=== PATIENT | male | born 1930 | race African-American/Black ===

== ENCOUNTER 2017-03-21 02:10 | Inpatient (IN) | payer MEDICARE ==
--- NOTE | ~2017-03-21 | IDS ---
Interim Discharge Summary [facility] [address] [place]. [address] NAME: JIA MCALLISTER JR : 34 STATUS : ADM IN PAT#: [id number] AGE: 86 ADM/REG DATE : 03/21/17 MR#: [id number] REPORT SERV DATE: 03/24/17 DICTATED BY: Donis ESPOSITO DATE: 03/24/17 REPORT STATUS : Draft TRANSCRIBED BY: MODL DATE: 03/24/17 ADMISSION DATE: 03/21/2017 DISCHARGE DATE: DATE OF INTERIM SUMMARY: 03/24/2017. DIAGNOSES AT TIME OF INTERIM SUMMARY: Metabolic encephalopathy, resolved; profound hypoglycemia, improving; acute kidney injury/chronic kidney disease stage 3; hypokalemia, resolved; atrial fibrillation; moderate protein-calorie malnutrition; history of prostate cancer with undetectable PSA. CONSULTS: None. PROCEDURES: None. BRIEF SUMMARY: 86-year-old male patient was admitted confused and profoundly hypoglycemic to the intermediate care unit. Initial stabilization required multiple doses of glucagon, D50, and ultimately continue with D10 for stabilization. The patient's family denies that he had accessed the diabetic medication and he has no history of diabetes. His evaluation has included a C-peptide level, insulin levels, and pro-insulin levels; all these values have now back and suggesting that the source of his hyperglycemia could be endogenous. The patient has had a CT scan of the pancreas with and without contrast that showed no abnormality. I have reviewed the case with Dr. Harish Pastor, household appliance installer. His recommendations are to repeat his pro-insulin level, C-peptide level, TSH, and cortisol, fasting tomorrow morning, and off IV fluids. If these values come back consistent with an endogenous source, he would recommend PET scanning. Of note, the patient's drug screen for diabetic medications remains pending. If this test does suggest that the patient has had inadvertent oral therapy, likely the PET scan would be necessary. We will keep the patient here at immediate care for one more day while we hep-lock his IV fluids and repeat his fasting labs, just in case he redevelop hypoglycemia. The patient's hospital care will be provided by another member of the team starting 03/25/2017. LABORATORY DATA: Significant labs at the time of this dictation, show a sodium of 135, potassium of 4.5, BUN of 40, creatinine 1.89. White count is 12.6 with a hemoglobin of 10.0. [facility]/MODL Donis Esposito M.D. / [id number] CC: Interim Discharge Summary [address] [address] NAME: MCALLISTERJIA Todd ADÁN CONN : 32 STATUS : ADM IN PAT#: [id number] AGE: 86 ADM/REG DATE : 03/21/17 MR#: [id number] REPORT SERV DATE: 03/24/17 DICTATED BY: Donis ESPOSITO DATE: 03/24/17 REPORT STATUS : Draft TRANSCRIBED BY: CITLALLI DATE: 03/24/17 Triny Tolentino M.D.
--- NOTE | ~2017-03-21 | EGD ---
EGD REPORT [facility] [address] [address] NAME: JIA MCALLISTER : 32 STATUS : ADM IN PAT#: [id number] AGE: 86 ADM/REG DATE : 03/21/17 MR#: [id number] REPORT SERV DATE: 04/03/17 DICTATED BY: ABEL RAMOS DATE: 04/03/17 REPORT STATUS : Draft TRANSCRIBED BY: [facility] DATE: 04/03/17 [facility] Patient Name: Jia Mcallister Date of : 1930 Attending MD: ABEL RAMOS MD Procedure Date No Time: 04/03/2017 Procedure: Upper EUS Indications: Suspected mass in pancreas on CT scan Referring MD: JOHN MELENDEZ Medicines: Monitored Anesthesia Care Complications: No immediate complications. Estimated blood loss: Minimal. Procedure: Pre-Anesthesia Assessment: - ASA Grade Assessment: III - A patient with severe systemic disease. After obtaining informed consent, the endoscope was passed under direct vision. Throughout the procedure, the patient's blood pressure, pulse, and oxygen saturations were monitored continuously. The Endoscope was introduced through the mouth, and advanced to the second part of duodenum. The upper EUS was accomplished without difficulty. The patient tolerated the procedure well. Findings: Endosonographic Finding : There was no sign of significant endosonographic abnormality in the common bile duct. No stones, no biliary sludge and ducts of normal caliber were identified. There was lobularity seen in the head of the pancreas consistent with mild chronic pancreatitis, but there was no suggestion of any mass or lymphadenopathy despite a careful examination. The area in question was examined a second time by Dr. Carrington, but again no mass or suspicious lesions were seen. There was no sign of significant endosonographic abnormality in the genu of the pancreas, in the pancreatic body and in the pancreatic tail. No pathologic lymphadenopathy, no masses, no cysts, the pancreatic duct was thin in caliber. Endosonographic imaging of the visualized portion of the liver showed no abnormalities. No lymphadenopathy seen. A limited doppler examination was performed and revealed no significant vascular abnormalities. Impression: - Mild lobularity was noted in the pancreatic head but EGD REPORT [address] [place]. [address] NAME: JIA MCALLISTER ADÁN CONN : 32 STATUS : ADM IN [facility]#: [id number] AGE: 86 ADM/REG DATE : 03/21/17 MR#: [id number] REPORT SERV DATE: 04/03/17 DICTATED BY: ABEL RAMOS DATE: 04/03/17 REPORT STATUS : Draft TRANSCRIBED BY: [facility] DATE: 04/03/17 no mass or lymph nodes were seen despite careful examination. - There was no sign of significant pathology in the genu of the pancreas, in the pancreatic body and in the pancreatic tail. - Otherwise normal examination with EUS Recommendation: - [facility]. - Return to previous diet today. Procedure Code(s): --- Professional --- 33064, Esophagogastroduodenoscopy, flexible, transoral; with endoscopic ultrasound examination, including the esophagus, stomach, and either the duodenum or a surgically altered stomach where the jejunum is examined distal to the anastomosis Diagnosis Code(s): --- Professional --- K86.9, Disease of pancreas, unspecified R93.3, Abnormal findings on diagnostic imaging of other parts of digestive tract CPT copyright 2013 [employer]. All rights reserved. The codes documented in this report are preliminary and upon adoption services manager review may be revised to meet current compliance requirements. Abel Ramos MD ABEL RAMOS MD 04/03/2017 8:22 AM This report has been signed electronically. Number of Addenda: 0 Note Initiated On: 04/03/2017 7:00 AM Scope Withdrawal Time 0 hours 0 minutes 0 seconds [address] [address]
--- NOTE | ~2017-03-21 | HP ---
History And Physical [place] [address] [facility] [place]. [address] NAME: JIA MCALLISTER JR : 32 STATUS : ADM IN PAT#: [id number] AGE: 86 ADM/REG DATE : 03/21/17 MR#: [id number] REPORT SERV DATE: 03/21/17 DICTATED BY: SCARLET LOPEZ DATE: 03/21/17 REPORT STATUS : Draft TRANSCRIBED BY: MODBravo DATE: 03/21/17 DATE OF ADMISSION: 03/21/2017 CHIEF COMPLAINT: An 86-year-old male, presenting with severe symptomatic hypoglycemia despite being nondiabetic. HISTORY OF PRESENT ILLNESS: The patient's history was obtained through careful interview with the patient, his common-law of 20 years, daughter, and granddaughter, coupled with review of [facility] medical records. The patient has been in usual state of health when suddenly on the night of admission, his had found him lying in bed, completely unresponsive, and "soaking wet" with diaphoresis. The patient's is a diabetic and called an ambulance service. They came and evaluated him and found that he had a blood sugar of 32. He was shaking unresponsive until the patient was given treatment for low blood sugar when he was revived again and the symptoms subsided. He was quite confused for about an hour afterwards with only gradual improvement in his symptoms of confusion to where now, he is oriented and back to baseline during my evaluation. He has noticed some increasing new onset lower extremity edema over the last month or so. He has chronic shortness of breath unchanged from baseline. No coughing. No fevers or chills. No nausea or vomiting. No change of bowel or bladder habit. The patient has no pain complaints at all. No headache. No back pain. No chest pain. No abdominal pain. Although the patient's is a diabetic and takes medicines for this. She adamantly proclaims that it is "impossible" for the patient to have accidentally taken some of her medications, and the patient himself is quite organized with his medication regimen as well and states there was no way that he can imagine taking these medications. REVIEW OF SYSTEMS: Otherwise, a 14-point review of systems was obtained and was negative. PAST MEDICAL HISTORY: 1. Prostate cancer in 2010. 2. Gout. 3. Hypertension. 4. Chronic kidney disease, stage III. Baseline creatinine of 1.3 to 1.5. 5. Cellulitis. 6. Some kind of cardiac aneurysm seen at [facility], evaluated by Dr. Jim Hu. PAST SURGICAL HISTORY: Cholecystectomy. History And Physical [address] [place]. [address] NAME: JIA MCALLISTER JR : 32 STATUS : ADM IN PAT#: [id number] AGE: 86 ADM/REG DATE : 03/21/17 MR#: [id number] REPORT SERV DATE: 03/21/17 DICTATED BY: SCARLET LOPEZ DATE: 03/21/17 REPORT STATUS : Draft TRANSCRIBED BY: CITLALLI DATE: 03/21/17 ALLERGIES: NO KNOWN DRUG ALLERGIES. SOCIAL HISTORY: Quit smoking in 1990. Ambulates with a walker. He is completely independent with activities of daily living. He has seven children. He has been living with his common-law for 20 years. FAMILY HISTORY: Cancer and diabetes. CURRENT MEDICATIONS: Allopurinol 300 mg p.o. daily, Casodex 50 mg p.o. daily, Lasix 40 mg p.o. daily, Neurontin 300 mg p.o. t.i.d., Lopressor 50 mg p.o. b.i.d. PHYSICAL EXAMINATION: VITAL SIGNS: Temperature 97.0, pulse 67, blood pressure 102/61, respiratory rate 18, and O2 saturation 99% on room air. GENERAL: A pleasant, cooperative, asymptomatic -Swazi male, no evidence of distress. HEENT: Pupils equal, round, and reactive to light. No conjunctival pallor. No scleral icterus. Nares are patent. Oropharynx was clear of obstruction. Moist mucous membranes. NECK: Trachea midline. No thyromegaly. LYMPH: No cervical lymphadenopathy. No supraclavicular lymphadenopathy. RESPIRATORY: Clear to auscultation at bases. No wheezes, rales, or rhonchi. Normal respiratory effort. CARDIOVASCULAR: Regular rate and rhythm. No murmurs, rubs, or gallops. No extremity edema is appreciated. ABDOMEN: Soft, nontender, nondistended. Normal bowel sounds auscultated throughout. No hepatosplenomegaly. DERMATOLOGICAL: Warm and dry extremities. No pallor. No cyanosis. PSYCHIATRIC: Normal affect. Good mood. Alert and oriented x3. LABORATORY DATA: White blood cell count 13.2, hemoglobin 10, hematocrit 32, platelets 152. Sodium 145, potassium 3.0, chloride 105, bicarb 26, BUN 33, creatinine 1.7, glucose 41, albumin 3.0, AST 341, ALT 78, alkaline phosphatase 188. STUDIES: Chest x-ray by my own evaluation shows cardiomegaly. No acute abnormality. ASSESSMENT AND PLAN: 1. Severe hypoglycemia and a nondiabetic. 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 While I am evaluating the patient, an Accu-Chek shows a blood sugar of 52, this despite the patient having just received an amp of D50 and having eaten some crackers, but I have decided to admit the patient to the IMCU to work the patient up for hypoglycemic evaluation and even to rule out insulinoma to further clarify this is an accidental medication side-effect from accidentally taking his 's diabetes medication. We will watch in the IMCU. We will check Accu-Chek every [address] the patient in a fasting state at the blood sugar of 52 is asymptomatic, but I have begun evaluation by checking sulfonylurea and meglitinide History And Physical [address] [address] NAME: JIA MCALLISTER JR : 32 STATUS : ADM IN [facility]#: [id number] AGE: 86 ADM/REG DATE : 03/21/17 MR#: [id number] REPORT SERV DATE: 03/21/17 DICTATED BY: SCARLET LOPEZ DATE: 03/21/17 REPORT STATUS : Draft TRANSCRIBED BY: MODBravo DATE: 03/21/17 screen as well as checking insulin, C-peptide, beta-hydroxybutyrate, and proinsulin. When the blood sugar drops into the 40s, we will repeat the studies and if the patient has any symptomatic hypoglycemia, if the patient drops below blood sugar of 40, and/or becomes symptomatic, we will begin to treat with glucose but until then we will continue to check insulin C-peptide, beta-hydroxybutyrate, and proinsulin evaluating the patient's response to hypoglycemia. 2. Hypokalemia. Replace potassium. Check magnesium. Check telemetry. 3. Acute kidney injury. Place on IV fluids. 4. Leukocytosis. Check urinalysis. Monitor for fevers. Question of possible stress response. Check ESR and CRP. [facility]/MODL Scarlet Lopez M.D. / [id number] CC: Triny Tolentino M.D.
--- NOTE | ~2017-03-21 | DS ---
Discharge Summary [facility] [address] [place]. [address] NAME: JIA MCALLISTER JR : 32 STATUS : DIS IN PAT#: [id number] AGE: 86 ADM/REG DATE : 03/21/17 MR#: [id number] REPORT SERV DATE: 04/04/17 DICTATED BY: ROBERT GUAJARDO DATE: 04/03/17 REPORT STATUS : Draft TRANSCRIBED BY: MODL DATE: 04/03/17 ADMISSION DATE: 03/21/2017 DISCHARGE DATE: 04/03/2017 The patient is an 86-year-old male with a history of hypertension, CKD stage 3, and prostate cancer in 2010, who was brought to the emergency room with a complaint of severe symptomatic hypoglycemia despite being nondiabetic. For further details, please refer to H and P dictated by Dr. Efe Francisco on 03/21/2017. HOSPITAL COURSE: Please refer to interim discharge summary dictated by Dr. Mayank Garrett on 03/24/2017. I assumed care of the patient on 03/28/2017. At the time of my assumption of care, the patient was hemodynamically stable and his severe symptomatic hypoglycemia was being worked up. Urine sample had been obtained for drug level as possible etiology of his hypoglycemia, and also C-peptide and proinsulin were also ordered. Given that these were sent out, labs results came back four to five days later. Upon my assumption of care, I reviewed the patient's urine drug screen. I also reviewed his C-peptide and proinsulin. His urine was negative for any anti-hyperglycemic medications and his proinsulin and C- peptide were both elevated suggesting an endogenous cause of his hypoglycemia. After consultation with Radiology, dynamic MRI of abdomen and pelvis was ordered. Results came back with a concern of a possible lesion noted on the pancreatic head, likely concerning for an insulinoma. Given this finding, GI was consulted to assist in management. The patient was taken today for endoscopic ultrasound with biopsy. At the time of our procedure, pancreatic head was carefully examined, however, no lesion suggestive of an insulinoma was found and no lesion that needed to be biopsied. Given this finding, no biopsy was taken. The patient was returned to the medical floor for further management. Since my assumption of care, the patient has not had any episodes of hypoglycemia and he has remained hemodynamically stable and currently at his baseline given completion of workup, and the patient will be discharged back to [facility]. Plan has been discussed with the patient and family who voiced understanding and is agreeable with this plan. DISCHARGE PHYSICAL EXAMINATION: VITAL SIGNS: 104/66 with a pulse of 69, respirations of 18, and O2 saturation of 99% on room air. GENERAL: The patient sitting in chair, in no acute distress. Appears stated age. HEENT: Normocephalic and atraumatic. Extraocular motors intact. Moist oral mucosa. Pupils are round and reactive to light and accommodation. NECK: Trachea midline and symmetric. No JVD noted. No lymphadenopathy palpated. No thyromegaly noted. CHEST: Nontender to palpation. No scars noted. CARDIOVASCULAR: Regular rate and rhythm. S1, S2. No murmurs, rubs, or gallops. LUNGS: Clear to auscultation bilaterally. No wheezes, rales, or rhonchi. ABDOMEN: Positive bowel sounds. Nontender. Nondistended. Mildly obese. EXTREMITIES: No cyanosis, no clubbing, no edema. NEURO: The patient is alert and oriented as he is currently at his baseline. DISCHARGE DIAGNOSES: 1. Insulinoma. Discharge Summary [address] [address] NAME: JIA MCALLISTER JR : 32 STATUS : DIS IN PAT#: [id number] AGE: 86 ADM/REG DATE : 03/21/17 MR#: [id number] REPORT SERV DATE: 04/04/17 DICTATED BY: ROBERT GUAJARDO DATE: 04/03/17 REPORT STATUS : Draft TRANSCRIBED BY: MODL DATE: 04/03/17 2. Severe hypoglycemia. 3. History of cor pulmonale. 4. History of prostate cancer. 5. Stage 3 chronic kidney disease. DISCHARGE MEDICATIONS: 1. Allopurinol 300 mg p.o. daily. 2. Casodex 50 mg p.o. daily. 3. Furosemide 40 mg p.o. daily. 4. Gabapentin 300 mg p.o. q.8 hours. 5. Lopressor 50 mg p.o. twice a day. PROCEDURE: 1. Upper endoscopic ultrasound. Impression: Please refer to EGD report dictated by GI on 04/03/2017. 2. CARINE from 03/22/2017. 3. Abdominal CT with and without contrast 03/22/2017. 4. Venous Doppler of lower extremities bilaterally on 03/21/2017. 5. Dynamic MRI of abdomen with and without contrast on 03/29/2017. CONSULTANTS: Dr. Aguila of GI. DISPOSITION: The patient will be discharged to [facility]. ACTIVITY: As tolerated. DIET: Regular diet. Greater than 30 minutes was spent coordinating care, discussion of case with nursing staff, dictation of note, medication reconciliation, and providing counseling. MALA/CITLALLI Robert Guajardo MD / [id number] CC: MD Tonny Camp M.D.
--- NOTE | ~2017-03-21 | CN ---
Consultation Report [facility] [address]. [address] NAME: JIA MCALLISTER JR : 34 STATUS : ADM IN [facility]#: [id number] AGE: 86 ADM/REG DATE : 03/21/17 MR#: [id number] REPORT SERV DATE: 03/30/17 DICTATED BY: JOY TURNER DATE: 03/30/17 REPORT STATUS : Draft TRANSCRIBED BY: MODL DATE: 03/30/17 GI CONSULTATION DATE OF CONSULTATION: 03/30/2017 REASON FOR CONSULTATION: Abnormal CT scan and pancreatic mass. HISTORY OF PRESENT ILLNESS: Mr. Mcallister is an 86-year-old black male with a history of prostate cancer, gout, hypertension and chronic kidney disease stage 3. He initially presented to [facility] with symptomatic hypoglycemia and altered mental status. He was admitted on 03/21/2017, he had an MRI recently performed, which showed a 2 x 0.7 cm mass in the superior aspect of the pancreatic head. The remainder of the pancreas appeared normal. No biliary dilatation. Normal-appearing liver and spleen. GI has been consulted for possible insulinoma. Glucose today was 88. PAST MEDICAL HISTORY: Prostate cancer, hypertension, chronic kidney disease stage 3, gout and cardiac aneurysm. PAST SURGICAL HISTORY: Cholecystectomy. SOCIAL HISTORY: Former tobacco use. Denies any alcohol or drug use. FAMILY HISTORY: Cancer and diabetes. MEDICATIONS: Reviewed. ALLERGIES: REVIEWED. PHYSICAL EXAMINATION: VITAL SIGNS: The patient is afebrile. His vital signs are stable. GENERAL: The patient is awake, alert, and oriented x3. Very hard of hearing. HEENT: Atraumatic, normocephalic. Anicteric. Mucous membranes moist. CARDIAC: S1, S2. CHEST: Clear. ABDOMEN: Soft, obese, nontender and nondistended. Bowel sounds normoactive. LABORATORY DATA: WBC 11.2, hemoglobin 10.2, hematocrit 30.6, platelets 209, MCV 78.2. INR is 1.3. Sodium 139, potassium 4.1, chloride 100, bicarb 36, BUN 34, creatinine 1.61, glucose 88. Liver enzymes show bilirubin 0.8, AST 50, ALT 36, alkaline phosphatase 219. No lipase recently performed. IMAGING: As dictated above. IMPRESSION AND PLAN: Pancreatic mass, which is adjacent to small bowel. We will go ahead Consultation Report [facility] [address] [place]. [address] NAME: JIA MCALLISTER JR : 32 STATUS : ADM IN PAT#: [id number] AGE: 86 ADM/REG DATE : 03/21/17 MR#: [id number] REPORT SERV DATE: 03/30/17 DICTATED BY: JOY TURNER DATE: 03/30/17 REPORT STATUS : Draft TRANSCRIBED BY: MODL DATE: 03/30/[address] Carrington' service for possible endoscopic ultrasound for further evaluation. I discussed this with the nurse practitioner as well as the patient and his family. Questions and concerns were addressed. We will continue to follow with you. I have taken the liberty of adding a lipase and CA 19-9 to next blood draw. ELLEN/CITLALLI Joy Turner MD / [id number] CC: MD Tonny Camp M.D.
[~2017-03-21 02:10] MED LIST: CAT1 PO; L40 PO; MICRO-K10 MEQ PO; Z100 PO; ZIAC5 PO
[2017-03-21 03:20] LABS: BASOPHILS 0.2 %; BASOPHILS ABSOLUTE 0.02 10/3/uL (0.0-0.16); EOSINOPHILS 0.2 %; EOSINOPHILS ABSOLUTE 0.02 10/3/uL (0.0-0.53); HEMATOCRIT 32.3 % (40.0-51.0); HEMOGLOBIN 10.7 g/dL (13.6-17.8); IMMATURE GRANULOCYTES 0.3 %; IMMATURE GRANULOCYTES ABSOLUTE 0.04 10/3/uL (0.0-0.11); LYMPHOCYTES 8.2 %; LYMPHOCYTES ABSOLUTE 1.09 10/3/uL (0.67-4.30); MEAN CORPUS HGB CONC 33.1 g/dL (32.0-36.0); MEAN CORPUSCULAR HEMOGLOB 26.1 pg (26.0-34.0); MEAN CORPUSCULAR VOLUME 78.8 fL (80-100); MEAN PLATELET VOLUME 11.2 fL (9.2-13.0); MONOCYTES 6.5 %; MONOCYTES ABSOLUTE 0.86 10/3/uL (0.21-1.20); NEUTROPHILS 84.6 %; NEUTROPHILS ABSOLUTE 11.21 10/3/uL (2.02-8.40); RBC DISTRIBUTION WIDTH 15.7 % (12.0-16.0)
[2017-03-21 03:23] LABS: ER CBC TAT 0 Hrs 09 Mins; MANUAL DIFF NO %; PLATELET COUNT 152 10/3/uL (150-400); WHITE BLOOD CELLS 13.2 10/3/uL (4.5-10.5)
[2017-03-21 03:36] LABS: A/G RATIO 0.9 (0.7-1.9); CALCIUM, SERUM 8.1 MG/DL (8.5-10.4); CHLORIDE, SERUM 109 MMOL/L (96-112); CO2 (CARBON DIOXIDE) 26 MMOL/L (24-34); GLOBULIN 3.2 G/DL (2.5-4.1); SGPT(ALT) 28 U/L (5-65); TOTAL BILIRUBIN 0.5 MG/DL (0-1.2); TOTAL PROTEIN 6.2 G/DL (6.0-8.5)
[2017-03-21 03:38] LABS: PLATELET ESTIMATE ADQ (ADEQUATE)
[2017-03-21 03:39] LABS: ALKALINE PHOSPHATASE 188 U/L (45-117); BUN (BLOOD UREA NITROGEN) 33 MG/DL (6-23); CREATININE 1.77 MG/DL (0.70-1.30); GFR AFRICAN AMERICAN 40 ML/MIN (>=60); GFR NON AFRICAN AMERICAN 35 ML/MIN (>=60); GIANT PLATELET FEW; GLUCOSE, SERUM 41 MG/DL (60-99); SODIUM, SERUM 145 MMOL/L (135-148)
[2017-03-21 03:40] LABS: SGOT(AST) 341 U/L (5-40)
[2017-03-21] MEDS ORDERED: NEUR300 PO (05:03)
[2017-03-21] MEDS ORDERED: Z300 PO (05:03)
[2017-03-21] MEDS ORDERED: L40 PO (05:03)
[2017-03-21] MEDS ORDERED: CASODEX 50 MG T50 MG PO (05:03)
[2017-03-21] MEDS ORDERED: LOP50 PO (05:03)
[2017-03-21 09:40] LABS: INTERNATIONAL NORMAL RATI 1.3 UNITS (-); PARTIAL THROMBO TIME 34.5 SEC (22.5-37.2)
[2017-03-21 09:42] LABS: BASOPHILS 0.2 %; BASOPHILS ABSOLUTE 0.02 10/3/uL (0.0-0.16); EOSINOPHILS 0.2 %; EOSINOPHILS ABSOLUTE 0.02 10/3/uL (0.0-0.53); HEMATOCRIT 31.4 % (40.0-51.0); HEMOGLOBIN 10.5 g/dL (13.6-17.8); IMMATURE GRANULOCYTES 0.2 %; IMMATURE GRANULOCYTES ABSOLUTE 0.03 10/3/uL (0.0-0.11); MEAN CORPUS HGB CONC 33.4 g/dL (32.0-36.0); MEAN CORPUSCULAR HEMOGLOB 26.4 pg (26.0-34.0); MEAN CORPUSCULAR VOLUME 78.9 fL (80-100); MONOCYTES 4.7 %; MONOCYTES ABSOLUTE 0.61 10/3/uL (0.21-1.20); NEUTROPHILS 84.7 %; NEUTROPHILS ABSOLUTE 10.97 10/3/uL (2.02-8.40); PLATELET COUNT 146 10/3/uL (150-400); RBC DISTRIBUTION WIDTH 15.8 % (12.0-16.0); RED CELL COUNT 3.98 10/6/uL (4.7-6.1)
[2017-03-21 09:43] LABS: MANUAL DIFF NO %
[2017-03-21 09:52] LABS: PLATELET ESTIMATE SLT DEC (ADEQUATE); RBC MORPHOLOGY NORM (NORMAL)
[2017-03-21 09:56] LABS: A/G RATIO 0.9 (0.7-1.9); ALBUMIN 2.9 G/DL (3.5-5.0); ALKALINE PHOSPHATASE 191 U/L (45-117); BUN (BLOOD UREA NITROGEN) 30 MG/DL (6-23); C-REACTIVE PROTEIN 9.5 MG/L (<8.0); CALCIUM, SERUM 8.1 MG/DL (8.5-10.4); CHLORIDE, SERUM 111 MMOL/L (96-112); CO2 (CARBON DIOXIDE) 25 MMOL/L (24-34); CREATININE 1.71 MG/DL (0.70-1.30); GFR AFRICAN AMERICAN 42 ML/MIN (>=60); GFR NON AFRICAN AMERICAN 36 ML/MIN (>=60); GLOBULIN 3.4 G/DL (2.5-4.1); GLUCOSE, SERUM 54 MG/DL (60-99); POTASSIUM, SERUM 3.1 MMOL/L (3.5-5.3); SGOT(AST) 36 U/L (5-40); SGPT(ALT) 29 U/L (5-65); SODIUM, SERUM 145 MMOL/L (135-148); TOTAL BILIRUBIN 0.5 MG/DL (0-1.2); TOTAL PROTEIN 6.3 G/DL (6.0-8.5); ULTRASENSITIVE TSH 0.978 MCIU/ML (0.358-3.740)
[2017-03-21 09:58] LABS: TROPONIN I 0.24 NG/ML (<0.05)
[2017-03-21 10:36] LABS: SED RATE 12 MM/HR (0-15)
[2017-03-21 13:19] LABS: BUN (BLOOD UREA NITROGEN) 30 MG/DL (6-23); CALCIUM, SERUM 8.7 MG/DL (8.5-10.4); CHLORIDE, SERUM 105 MMOL/L (96-112); CO2 (CARBON DIOXIDE) 28 MMOL/L (24-34); CREATININE 1.57 MG/DL (0.70-1.30); GFR AFRICAN AMERICAN 46 ML/MIN (>=60); GFR NON AFRICAN AMERICAN 40 ML/MIN (>=60); GLUCOSE, SERUM 30 MG/DL (60-99); SODIUM, SERUM 139 MMOL/L (135-148)
[2017-03-21 23:05] LABS: POTASSIUM, SERUM 3.7 MMOL/L (3.5-5.3)
[2017-03-22 06:32] LABS: BASOPHILS 0.2 %; BASOPHILS ABSOLUTE 0.02 10/3/uL (0.0-0.16); EOSINOPHILS 1.2 %; EOSINOPHILS ABSOLUTE 0.13 10/3/uL (0.0-0.53); HEMATOCRIT 31.6 % (40.0-51.0); HEMOGLOBIN 10.4 g/dL (13.6-17.8); IMMATURE GRANULOCYTES 0.3 %; IMMATURE GRANULOCYTES ABSOLUTE 0.03 10/3/uL (0.0-0.11); LYMPHOCYTES ABSOLUTE 1.73 10/3/uL (0.67-4.30); MEAN CORPUS HGB CONC 32.9 g/dL (32.0-36.0); MEAN PLATELET VOLUME 11.8 fL (9.2-13.0); MONOCYTES 5.8 %; MONOCYTES ABSOLUTE 0.63 10/3/uL (0.21-1.20); NEUTROPHILS 76.5 %; PLATELET COUNT 152 10/3/uL (150-400); RBC DISTRIBUTION WIDTH 16.1 % (12.0-16.0); WHITE BLOOD CELLS 10.8 10/3/uL (4.5-10.5)
[2017-03-22 06:33] LABS: MANUAL DIFF NO %
[2017-03-22 06:45] LABS: A/G RATIO 0.9 (0.7-1.9); ALBUMIN 2.9 G/DL (3.5-5.0); CALCIUM, SERUM 8.2 MG/DL (8.5-10.4); CHLORIDE, SERUM 108 MMOL/L (96-112); CO2 (CARBON DIOXIDE) 25 MMOL/L (24-34); CPK 128 U/L (0-200); CREATININE 1.49 MG/DL (0.70-1.30); GFR AFRICAN AMERICAN 49 ML/MIN (>=60); GFR NON AFRICAN AMERICAN 42 ML/MIN (>=60); GLOBULIN 3.3 G/DL (2.5-4.1); POTASSIUM, SERUM 3.8 MMOL/L (3.5-5.3); SGOT(AST) 38 U/L (5-40); SGPT(ALT) 29 U/L (5-65); SODIUM, SERUM 141 MMOL/L (135-148); TOTAL BILIRUBIN 0.8 MG/DL (0-1.2); TOTAL PROTEIN 6.2 G/DL (6.0-8.5)
[2017-03-22 06:50] LABS: ALKALINE PHOSPHATASE 176 U/L (45-117); BUN (BLOOD UREA NITROGEN) 23 MG/DL (6-23); GLUCOSE, SERUM 47 MG/DL (60-99); PROSTATIC SPECIFIC AG < 0.05 NG/ML (0.0-6.5)
[2017-03-22 06:58] LABS: PLATELET ESTIMATE ADQ (ADEQUATE); POIKILOCYTOSIS 1+ (5-10/OIF) (0-5/OIF); POLYCHROMASIA 1+ (2-5/OIF) (0-1/OIF); SCHISTOCYTES OCC (0-2/OIF)
[2017-03-22 06:59] LABS: OVALOCYTES 1+ (3-10/OIF) (0-2/OIF)
[2017-03-22 23:37] LABS: ASCORBIC ACID (UR NOT ORDER) NEG (NEG); BILIRUBIN, URINE NEGATIVE (NEG); KETONE, URINE NEGATIVE (NEG); LEUKOCYTE ESTERASE(NOT OR NEG (NEG); WBC (NOT ORDERED) (RFLEX) 1 (0-5)
[2017-03-23 04:43] LABS: BASOPHILS 0.5 %; BASOPHILS ABSOLUTE 0.06 10/3/uL (0.0-0.16); EOSINOPHILS 1.3 %; EOSINOPHILS ABSOLUTE 0.16 10/3/uL (0.0-0.53); HEMATOCRIT 31.5 % (40.0-51.0); HEMOGLOBIN 10.4 g/dL (13.6-17.8); IMMATURE GRANULOCYTES 0.3 %; IMMATURE GRANULOCYTES ABSOLUTE 0.04 10/3/uL (0.0-0.11); LYMPHOCYTES ABSOLUTE 2.23 10/3/uL (0.67-4.30); MEAN CORPUSCULAR HEMOGLOB 25.7 pg (26.0-34.0); MEAN PLATELET VOLUME 12.3 fL (9.2-13.0); MONOCYTES 7.9 %; MONOCYTES ABSOLUTE 0.98 10/3/uL (0.21-1.20); NEUTROPHILS ABSOLUTE 8.89 10/3/uL (2.02-8.40); PLATELET COUNT 151 10/3/uL (150-400); RED CELL COUNT 4.04 10/6/uL (4.7-6.1); WHITE BLOOD CELLS 12.4 10/3/uL (4.5-10.5)
[2017-03-23 04:45] LABS: CALCIUM, SERUM 8.2 MG/DL (8.5-10.4); CHLORIDE, SERUM 102 MMOL/L (96-112); CO2 (CARBON DIOXIDE) 26 MMOL/L (24-34); CREATININE 1.82 MG/DL (0.70-1.30); GFR AFRICAN AMERICAN 39 ML/MIN (>=60); GFR NON AFRICAN AMERICAN 33 ML/MIN (>=60); MANUAL DIFF NO %; POTASSIUM, SERUM 4.2 MMOL/L (3.5-5.3); SODIUM, SERUM 136 MMOL/L (135-148)
[2017-03-23 04:47] LABS: BUN (BLOOD UREA NITROGEN) 31 MG/DL (6-23); GLUCOSE, SERUM 142 MG/DL (60-99)
[2017-03-23 05:03] LABS: PLATELET ESTIMATE ADQ (ADEQUATE)
[2017-03-23 05:04] LABS: ACANTHOCYTES OCC (0-2/OIF); BURR CELLS 1+ (3-10/OIF) (0-2/OIF)
[2017-03-23 17:56] LABS: BETA-HYDROXYBUTYRIC ACID 0.06 mmol/L (0.0-0.29); BETA-HYDROXYBUTYRIC ACID 0.6 mg/dL (0.0-3.0)
[2017-03-23 18:58] LABS: PROINSULIN 61.6 pmol/L (<8.1)
[2017-03-23 21:25] LABS: C PEPTIDE 22.7 ng/mL (1.1-4.4)
[2017-03-24 04:32] LABS: BASOPHILS 0.2 %; BASOPHILS ABSOLUTE 0.03 10/3/uL (0.0-0.16); EOSINOPHILS 0.6 %; EOSINOPHILS ABSOLUTE 0.08 10/3/uL (0.0-0.53); HEMATOCRIT 29.3 % (40.0-51.0); IMMATURE GRANULOCYTES 0.4 %; IMMATURE GRANULOCYTES ABSOLUTE 0.05 10/3/uL (0.0-0.11); LYMPHOCYTES 13.3 %; LYMPHOCYTES ABSOLUTE 1.67 10/3/uL (0.67-4.30); MANUAL DIFF NO %; MEAN CORPUS HGB CONC 34.1 g/dL (32.0-36.0); MEAN CORPUSCULAR HEMOGLOB 26.3 pg (26.0-34.0); MEAN CORPUSCULAR VOLUME 77.1 fL (80-100); MONOCYTES 8.4 %; MONOCYTES ABSOLUTE 1.06 10/3/uL (0.21-1.20); NEUTROPHILS 77.1 %; NEUTROPHILS ABSOLUTE 9.69 10/3/uL (2.02-8.40); PLATELET COUNT 162 10/3/uL (150-400); RBC DISTRIBUTION WIDTH 15.9 % (12.0-16.0); WHITE BLOOD CELLS 12.6 10/3/uL (4.5-10.5)
[2017-03-24 04:55] LABS: BUN (BLOOD UREA NITROGEN) 40 MG/DL (6-23); CALCIUM, SERUM 7.8 MG/DL (8.5-10.4); CHLORIDE, SERUM 103 MMOL/L (96-112); CO2 (CARBON DIOXIDE) 25 MMOL/L (24-34); CREATININE 1.89 MG/DL (0.70-1.30); GFR AFRICAN AMERICAN 37 ML/MIN (>=60); GFR NON AFRICAN AMERICAN 32 ML/MIN (>=60); GLUCOSE, SERUM 131 MG/DL (60-99); POTASSIUM, SERUM 4.5 MMOL/L (3.5-5.3); SODIUM, SERUM 135 MMOL/L (135-148)
[2017-03-24 05:36] LABS: PLATELET ESTIMATE ADQ (ADEQUATE); RBC MORPHOLOGY NORM (NORMAL)
[2017-03-24 17:52] LABS: BETA-HYDROXYBUTYRIC ACID 0.04 mmol/L (0.0-0.29); BETA-HYDROXYBUTYRIC ACID 0.4 mg/dL (0.0-3.0)
[2017-03-24 21:42] LABS: C PEPTIDE 10.8 ng/mL (1.1-4.4)
[2017-03-25 08:43] LABS: BUN (BLOOD UREA NITROGEN) 43 MG/DL (6-23); CALCIUM, SERUM 7.9 MG/DL (8.5-10.4); CHLORIDE, SERUM 109 MMOL/L (96-112); CO2 (CARBON DIOXIDE) 24 MMOL/L (24-34); CREATININE 1.78 MG/DL (0.70-1.30); GFR AFRICAN AMERICAN 40 ML/MIN (>=60); GFR NON AFRICAN AMERICAN 34 ML/MIN (>=60); POTASSIUM, SERUM 4.7 MMOL/L (3.5-5.3); SODIUM, SERUM 140 MMOL/L (135-148)
[2017-03-25 08:44] LABS: GLUCOSE, SERUM 99 MG/DL (60-99)
[2017-03-26 18:42] LABS: PROINSULIN 38.7 pmol/L (<8.1)
[2017-03-27 05:45] LABS: BUN (BLOOD UREA NITROGEN) 40 MG/DL (6-23); CALCIUM, SERUM 8.6 MG/DL (8.5-10.4); CHLORIDE, SERUM 105 MMOL/L (96-112); CREATININE 1.78 MG/DL (0.70-1.30); GFR AFRICAN AMERICAN 40 ML/MIN (>=60); GFR NON AFRICAN AMERICAN 34 ML/MIN (>=60); GLUCOSE, SERUM 106 MG/DL (60-99); PHOSPHORUS, SERUM 3.4 MG/DL (2.5-4.5); POTASSIUM, SERUM 4.8 MMOL/L (3.5-5.3); SODIUM, SERUM 141 MMOL/L (135-148)
[2017-03-27 05:46] LABS: CO2 (CARBON DIOXIDE) 30 MMOL/L (24-34)
[2017-03-27 17:12] LABS: ACETOHEXAMIDE Not Detected (()); CHLORPROPAMIDE Not Detected (()); GLIMEPIRIDE Not Detected (()); GLIPIZIDE Not Detected (()); GLYBURIDE Not Detected (()); NATEGLINIDE Not Detected (()); REPAGLINIDE Not Detected (()); TOLAZAMIDE Not Detected (()); TOLBUTAMIDE Not Detected (())
[2017-03-28 06:02] LABS: BUN (BLOOD UREA NITROGEN) 40 MG/DL (6-23); CALCIUM, SERUM 8.5 MG/DL (8.5-10.4); CHLORIDE, SERUM 102 MMOL/L (96-112); CO2 (CARBON DIOXIDE) 28 MMOL/L (24-34); CREATININE 1.72 MG/DL (0.70-1.30); GFR AFRICAN AMERICAN 41 ML/MIN (>=60); GFR NON AFRICAN AMERICAN 36 ML/MIN (>=60); GLUCOSE, SERUM 125 MG/DL (60-99); PHOSPHORUS, SERUM 2.5 MG/DL (2.5-4.5); POTASSIUM, SERUM 4.5 MMOL/L (3.5-5.3); SODIUM, SERUM 139 MMOL/L (135-148)
[2017-03-29 03:03] LABS: C PEPTIDE 4.5 ng/mL (1.1-4.4)
[2017-03-29 05:59] LABS: A/G RATIO 0.8 (0.7-1.9); ALBUMIN 2.4 G/DL (3.5-5.0); ALKALINE PHOSPHATASE 234 U/L (45-117); BUN (BLOOD UREA NITROGEN) 36 MG/DL (6-23); CALCIUM, SERUM 8.9 MG/DL (8.5-10.4); CHLORIDE, SERUM 102 MMOL/L (96-112); CO2 (CARBON DIOXIDE) 32 MMOL/L (24-34); CREATININE 1.61 MG/DL (0.70-1.30); GFR AFRICAN AMERICAN 45 ML/MIN (>=60); GFR NON AFRICAN AMERICAN 39 ML/MIN (>=60); GLOBULIN 3.1 G/DL (2.5-4.1); GLUCOSE, SERUM 95 MG/DL (60-99); POTASSIUM, SERUM 4.1 MMOL/L (3.5-5.3); SGOT(AST) 50 U/L (5-40); SGPT(ALT) 33 U/L (5-65); SODIUM, SERUM 141 MMOL/L (135-148); TOTAL BILIRUBIN 0.8 MG/DL (0-1.2); TOTAL PROTEIN 5.5 G/DL (6.0-8.5)
[2017-03-29 06:03] LABS: BASOPHILS 0.5 %; BASOPHILS ABSOLUTE 0.05 10/3/uL (0.0-0.16); EOSINOPHILS ABSOLUTE 0.11 10/3/uL (0.0-0.53); HEMATOCRIT 30.8 % (40.0-51.0); HEMOGLOBIN 10.1 g/dL (13.6-17.8); IMMATURE GRANULOCYTES 0.4 %; IMMATURE GRANULOCYTES ABSOLUTE 0.04 10/3/uL (0.0-0.11); LYMPHOCYTES 17.9 %; LYMPHOCYTES ABSOLUTE 1.98 10/3/uL (0.67-4.30); MEAN CORPUS HGB CONC 32.8 g/dL (32.0-36.0); MEAN CORPUSCULAR VOLUME 79.2 fL (80-100); MEAN PLATELET VOLUME 11.4 fL (9.2-13.0); MONOCYTES 7.1 %; MONOCYTES ABSOLUTE 0.79 10/3/uL (0.21-1.20); NEUTROPHILS 73.1 %; NEUTROPHILS ABSOLUTE 8.12 10/3/uL (2.02-8.40); RBC DISTRIBUTION WIDTH 15.9 % (12.0-16.0); RED CELL COUNT 3.89 10/6/uL (4.7-6.1); WHITE BLOOD CELLS 11.1 10/3/uL (4.5-10.5)
[2017-03-29 06:05] LABS: MANUAL DIFF NO %; PLATELET COUNT 215 10/3/uL (150-400)
[2017-03-30 06:21] LABS: BASOPHILS 0.6 %; BASOPHILS ABSOLUTE 0.07 10/3/uL (0.0-0.16); EOSINOPHILS 1.1 %; EOSINOPHILS ABSOLUTE 0.12 10/3/uL (0.0-0.53); HEMATOCRIT 30.6 % (40.0-51.0); HEMOGLOBIN 10.2 g/dL (13.6-17.8); IMMATURE GRANULOCYTES 0.4 %; IMMATURE GRANULOCYTES ABSOLUTE 0.04 10/3/uL (0.0-0.11); LYMPHOCYTES 24.2 %; LYMPHOCYTES ABSOLUTE 2.72 10/3/uL (0.67-4.30); MEAN CORPUS HGB CONC 33.3 g/dL (32.0-36.0); MEAN CORPUSCULAR HEMOGLOB 26.2 pg (26.0-34.0); MEAN CORPUSCULAR VOLUME 78.7 fL (80-100); MEAN PLATELET VOLUME 11.2 fL (9.2-13.0); MONOCYTES ABSOLUTE 0.56 10/3/uL (0.21-1.20); NEUTROPHILS 68.7 %; NEUTROPHILS ABSOLUTE 7.72 10/3/uL (2.02-8.40); PLATELET COUNT 209 10/3/uL (150-400); RED CELL COUNT 3.89 10/6/uL (4.7-6.1); WHITE BLOOD CELLS 11.2 10/3/uL (4.5-10.5)
[2017-03-30 06:23] LABS: MANUAL DIFF NO %
[2017-03-30 06:34] LABS: A/G RATIO 0.8 (0.7-1.9); ALBUMIN 2.4 G/DL (3.5-5.0); BUN (BLOOD UREA NITROGEN) 34 MG/DL (6-23); CALCIUM, SERUM 8.4 MG/DL (8.5-10.4); CHLORIDE, SERUM 100 MMOL/L (96-112); CO2 (CARBON DIOXIDE) 36 MMOL/L (24-34); CREATININE 1.66 MG/DL (0.70-1.30); GFR AFRICAN AMERICAN 43 ML/MIN (>=60); GFR NON AFRICAN AMERICAN 37 ML/MIN (>=60); GLOBULIN 3.1 G/DL (2.5-4.1); GLUCOSE, SERUM 88 MG/DL (60-99); POTASSIUM, SERUM 4.1 MMOL/L (3.5-5.3); SGOT(AST) 50 U/L (5-40); SGPT(ALT) 36 U/L (5-65); SODIUM, SERUM 139 MMOL/L (135-148); TOTAL BILIRUBIN 0.7 MG/DL (0-1.2); TOTAL PROTEIN 5.5 G/DL (6.0-8.5)
[2017-03-30 06:41] LABS: ALKALINE PHOSPHATASE 219 U/L (45-117)
[2017-03-30 14:10] LABS: CA-19-9 < 2.0 U/ML (< 37.0)
[2017-03-30 21:43] LABS: PROINSULIN 3.7 pmol/L (<8.1)
[2017-03-31 06:35] LABS: BASOPHILS 0.6 %; BASOPHILS ABSOLUTE 0.07 10/3/uL (0.0-0.16); EOSINOPHILS ABSOLUTE 0.12 10/3/uL (0.0-0.53); HEMATOCRIT 30.6 % (40.0-51.0); HEMOGLOBIN 10.2 g/dL (13.6-17.8); IMMATURE GRANULOCYTES 0.3 %; IMMATURE GRANULOCYTES ABSOLUTE 0.04 10/3/uL (0.0-0.11); LYMPHOCYTES 23.1 %; MEAN CORPUS HGB CONC 33.3 g/dL (32.0-36.0); MEAN CORPUSCULAR VOLUME 78.1 fL (80-100); MEAN PLATELET VOLUME 10.8 fL (9.2-13.0); MONOCYTES 5.5 %; MONOCYTES ABSOLUTE 0.64 10/3/uL (0.21-1.20); NEUTROPHILS 69.5 %; PLATELET COUNT 204 10/3/uL (150-400); RBC DISTRIBUTION WIDTH 16.2 % (12.0-16.0); RED CELL COUNT 3.92 10/6/uL (4.7-6.1); WHITE BLOOD CELLS 11.7 10/3/uL (4.5-10.5)
[2017-03-31 06:38] LABS: MANUAL DIFF NO %
[2017-03-31 06:54] LABS: A/G RATIO 0.8 (0.7-1.9); ALBUMIN 2.4 G/DL (3.5-5.0); ALKALINE PHOSPHATASE 212 U/L (45-117); BUN (BLOOD UREA NITROGEN) 33 MG/DL (6-23); CALCIUM, SERUM 8.6 MG/DL (8.5-10.4); CHLORIDE, SERUM 100 MMOL/L (96-112); CO2 (CARBON DIOXIDE) 32 MMOL/L (24-34); CREATININE 1.63 MG/DL (0.70-1.30); GFR AFRICAN AMERICAN 44 ML/MIN (>=60); GFR NON AFRICAN AMERICAN 38 ML/MIN (>=60); GLOBULIN 3.2 G/DL (2.5-4.1); GLUCOSE, SERUM 90 MG/DL (60-99); PHOSPHORUS, SERUM 2.8 MG/DL (2.5-4.5); POTASSIUM, SERUM 4.1 MMOL/L (3.5-5.3); SGOT(AST) 39 U/L (5-40); SGPT(ALT) 32 U/L (5-65); SODIUM, SERUM 140 MMOL/L (135-148); TOTAL BILIRUBIN 0.6 MG/DL (0-1.2); TOTAL PROTEIN 5.6 G/DL (6.0-8.5)
[2017-04-01 07:02] LABS: BASOPHILS 0.5 %; BASOPHILS ABSOLUTE 0.06 10/3/uL (0.0-0.16); EOSINOPHILS 1.7 %; HEMATOCRIT 30.7 % (40.0-51.0); HEMOGLOBIN 10.4 g/dL (13.6-17.8); IMMATURE GRANULOCYTES 0.3 %; IMMATURE GRANULOCYTES ABSOLUTE 0.03 10/3/uL (0.0-0.11); LYMPHOCYTES 22.7 %; LYMPHOCYTES ABSOLUTE 2.66 10/3/uL (0.67-4.30); MEAN CORPUS HGB CONC 33.9 g/dL (32.0-36.0); MEAN CORPUSCULAR HEMOGLOB 26.9 pg (26.0-34.0); MEAN CORPUSCULAR VOLUME 79.3 fL (80-100); MEAN PLATELET VOLUME 11.2 fL (9.2-13.0); MONOCYTES 5.4 %; MONOCYTES ABSOLUTE 0.63 10/3/uL (0.21-1.20); NEUTROPHILS 69.4 %; NEUTROPHILS ABSOLUTE 8.16 10/3/uL (2.02-8.40); PLATELET COUNT 204 10/3/uL (150-400); RBC DISTRIBUTION WIDTH 16.1 % (12.0-16.0); RED CELL COUNT 3.87 10/6/uL (4.7-6.1); WHITE BLOOD CELLS 11.7 10/3/uL (4.5-10.5)
[2017-04-01 07:08] LABS: ALBUMIN 2.4 G/DL (3.5-5.0); BUN (BLOOD UREA NITROGEN) 30 MG/DL (6-23); CALCIUM, SERUM 8.6 MG/DL (8.5-10.4); CO2 (CARBON DIOXIDE) 32 MMOL/L (24-34); GLUCOSE, SERUM 92 MG/DL (60-99)
[2017-04-01 07:13] LABS: MANUAL DIFF NO %
[2017-04-01 09:06] LABS: A/G RATIO 0.8 (0.7-1.9); ALKALINE PHOSPHATASE 216 U/L (45-117); CHLORIDE, SERUM 99 MMOL/L (96-112); CREATININE 1.69 MG/DL (0.70-1.30); GFR AFRICAN AMERICAN 42 ML/MIN (>=60); GFR NON AFRICAN AMERICAN 36 ML/MIN (>=60); GLOBULIN 3.2 G/DL (2.5-4.1); PHOSPHORUS, SERUM 2.8 MG/DL (2.5-4.5); POTASSIUM, SERUM 3.9 MMOL/L (3.5-5.3); SGOT(AST) 43 U/L (5-40); SGPT(ALT) 34 U/L (5-65); SODIUM, SERUM 134 MMOL/L (135-148); TOTAL BILIRUBIN 0.6 MG/DL (0-1.2); TOTAL PROTEIN 5.6 G/DL (6.0-8.5)
[2017-04-02 06:57] LABS: BASOPHILS 0.7 %; BASOPHILS ABSOLUTE 0.07 10/3/uL (0.0-0.16); EOSINOPHILS 1.2 %; EOSINOPHILS ABSOLUTE 0.13 10/3/uL (0.0-0.53); HEMATOCRIT 31.2 % (40.0-51.0); HEMOGLOBIN 10.3 g/dL (13.6-17.8); IMMATURE GRANULOCYTES 0.4 %; IMMATURE GRANULOCYTES ABSOLUTE 0.04 10/3/uL (0.0-0.11); LYMPHOCYTES 23.7 %; LYMPHOCYTES ABSOLUTE 2.54 10/3/uL (0.67-4.30); MEAN CORPUSCULAR VOLUME 78.8 fL (80-100); MEAN PLATELET VOLUME 11.1 fL (9.2-13.0); MONOCYTES 5.1 %; MONOCYTES ABSOLUTE 0.55 10/3/uL (0.21-1.20); NEUTROPHILS 68.9 %; NEUTROPHILS ABSOLUTE 7.38 10/3/uL (2.02-8.40); PLATELET COUNT 198 10/3/uL (150-400); RBC DISTRIBUTION WIDTH 15.8 % (12.0-16.0); RED CELL COUNT 3.96 10/6/uL (4.7-6.1); WHITE BLOOD CELLS 10.7 10/3/uL (4.5-10.5)
[2017-04-02 06:58] LABS: MANUAL DIFF NO %
[2017-04-02 07:13] LABS: A/G RATIO 0.7 (0.7-1.9); ALBUMIN 2.4 G/DL (3.5-5.0); BUN (BLOOD UREA NITROGEN) 30 MG/DL (6-23); CALCIUM, SERUM 8.5 MG/DL (8.5-10.4); CHLORIDE, SERUM 97 MMOL/L (96-112); CO2 (CARBON DIOXIDE) 34 MMOL/L (24-34); GFR AFRICAN AMERICAN 39 ML/MIN (>=60); GFR NON AFRICAN AMERICAN 34 ML/MIN (>=60); GLOBULIN 3.4 G/DL (2.5-4.1); GLUCOSE, SERUM 88 MG/DL (60-99); PHOSPHORUS, SERUM 2.9 MG/DL (2.5-4.5); POTASSIUM, SERUM 3.9 MMOL/L (3.5-5.3); SGOT(AST) 50 U/L (5-40); SGPT(ALT) 33 U/L (5-65); SODIUM, SERUM 137 MMOL/L (135-148); TOTAL BILIRUBIN 0.7 MG/DL (0-1.2); TOTAL PROTEIN 5.8 G/DL (6.0-8.5)
[2017-04-02 07:14] LABS: ALKALINE PHOSPHATASE 232 U/L (45-117)
[2017-04-03 09:36] LABS: BASOPHILS 0.4 %; BASOPHILS ABSOLUTE 0.04 10/3/uL (0.0-0.16); EOSINOPHILS 1.5 %; EOSINOPHILS ABSOLUTE 0.16 10/3/uL (0.0-0.53); HEMATOCRIT 32.6 % (40.0-51.0); HEMOGLOBIN 10.9 g/dL (13.6-17.8); IMMATURE GRANULOCYTES 0.2 %; IMMATURE GRANULOCYTES ABSOLUTE 0.02 10/3/uL (0.0-0.11); LYMPHOCYTES 29.3 %; LYMPHOCYTES ABSOLUTE 3.14 10/3/uL (0.67-4.30); MEAN CORPUS HGB CONC 33.4 g/dL (32.0-36.0); MEAN CORPUSCULAR HEMOGLOB 26.5 pg (26.0-34.0); MEAN CORPUSCULAR VOLUME 79.1 fL (80-100); MEAN PLATELET VOLUME 11.1 fL (9.2-13.0); MONOCYTES ABSOLUTE 0.64 10/3/uL (0.21-1.20); NEUTROPHILS 62.6 %; NEUTROPHILS ABSOLUTE 6.73 10/3/uL (2.02-8.40); PLATELET COUNT 192 10/3/uL (150-400); RBC DISTRIBUTION WIDTH 15.9 % (12.0-16.0); RED CELL COUNT 4.12 10/6/uL (4.7-6.1); WHITE BLOOD CELLS 10.7 10/3/uL (4.5-10.5)
[2017-04-03 09:38] LABS: MANUAL DIFF NO %
[2017-04-03 09:43] LABS: INTERNATIONAL NORMAL RATI 1.2 UNITS (-); PROTIME (NOT ORD) 14.7 SEC (12.0-14.5)
[2017-04-03 09:49] LABS: BUN (BLOOD UREA NITROGEN) 32 MG/DL (6-23); CALCIUM, SERUM 8.7 MG/DL (8.5-10.4); CHLORIDE, SERUM 99 MMOL/L (96-112); CO2 (CARBON DIOXIDE) 36 MMOL/L (24-34); CREATININE 1.86 MG/DL (0.70-1.30); GFR AFRICAN AMERICAN 38 ML/MIN (>=60); GFR NON AFRICAN AMERICAN 32 ML/MIN (>=60); GLUCOSE, SERUM 93 MG/DL (60-99); POTASSIUM, SERUM 3.7 MMOL/L (3.5-5.3); SODIUM, SERUM 140 MMOL/L (135-148)
== END 2017-04-03 16:30 | DRG 374 ==
LOC: ER 02:10 → IMCU 04:07 → 5SO 03-25 15:34
PROVIDERS: Hospitalist; Internal Medicine; Internal Medicine Gastroenterology; Nurse Practitioner Acute Care; Nurse Practitioner Family
PROC: 0DJ08ZZ Inspection of Upper Intestinal Tract, Via Natural or Artificial Opening Endoscopic (ICD-10-PCS; principal; 2017-04-03 07:37)
DX: D37.8 Neoplasm of uncertain behavior of other specified digestive organs (principal); G93.41 Metabolic encephalopathy; N17.9 Acute kidney failure, unspecified; E44.0 Moderate protein-calorie malnutrition; K86.1 Other chronic pancreatitis; I48.2 Chronic atrial fibrillation; I12.9 Hypertensive chronic kidney disease with stage 1 through stage 4 chronic kidney disease, or unspecified chronic kidney disease; E16.2 Hypoglycemia, unspecified; M10.9 Gout, unspecified; E87.6 Hypokalemia; N18.3 Chronic kidney disease, stage 3 (moderate); Z85.46 Personal history of malignant neoplasm of prostate; Z90.49 Acquired absence of other specified parts of digestive tract; Z98.890 Other specified postprocedural states; Z87.891 Personal history of nicotine dependence; Z80.8 Family history of malignant neoplasm of other organs or systems; Z83.3 Family history of diabetes mellitus; Z79.899 Other long term (current) drug therapy
CPT/HCPCS: 71010; 71250; 74170; 74183; 80048; 80053; 81001; 82010; 82330; 82533; 82550; 82962; 83036; 83525; 83690; 83735; 84100; 84132; 84153; 84206; 84443; 84484; 84681; 85025; 85610; 85652; 85730; 86140; 86301; 87040; 87070; 87205; 87641; 93005; 93306; 93970; 93971; 94640; 96374; 97110-GP; 97116-GP; 97162-GP; 97530-GP; 99285; A9270-GY; A9577; C1725; G0480; G8978-CL-GP; G8979-CK-GP; J2405; J2550; J3475; Q9967